=== PATIENT | female | born 1960 | race African-American/Black ===

== ENCOUNTER 2021-02-20 09:25 | Inpatient (IN) | payer MEDICARE, MEDICAID ==
[~2021-02-20] VITALS: Ht 165.1 cm; Wt 70.0 kg
[~2021-02-20 09:25] MED LIST: ETOMIDATE 2MG/ML 10ML VIAL IV ONE; SUCCINYLCHOLINE CHLORIDE 200MG/10ML IV ONE
[2021-02-20] MEDS ORDERED: ACETAMINOPHEN 650MG SUPP PR STA (10:16)
[2021-02-20 10:26] LABS: HEMATOCRIT. 34.3 % (36.0-48.0); HEMOGLOBIN. 10.2 g/dL (12.0-16.0); MEAN CORPUSCULAR HEMOGLOBIN 32.8 pg (28.0-32.0); RED BLOOD CELL COUNT 3.12 mill/uL (4.2-5.4); RED CELL DISTRIBUTION WIDTH 20.6 % (11.6-14.6)
[2021-02-20 10:29] LABS: CHLORIDE 97 mEq/L (98-107)
[2021-02-20] MEDS ORDERED: CEFEPIME 2,000 MG in DEXT 5% WATER 100 ML IV NR (10:30)
[2021-02-20] MEDS ORDERED: DEXTROSE 50% WATER 50ML SYRINGE IV ONE ×2 (10:30→14:45)
[2021-02-20] MEDS ORDERED: VANCOMYCIN 1 G PREMIX 200 ML IV ONE (10:30)
[2021-02-20 10:33] LABS: ETHANOL BLOOD < 10 mg/dL
[2021-02-20] MEDS ORDERED: BLOOD SUGAR DIAGNOSTIC STRIP TEST SCH (11:00)
[2021-02-20] MEDS ORDERED: DEXT 10% WATER 1,000 ML IV SCH (11:00)
[2021-02-20 11:05] LABS: NUCLEATED RED BLOOD CELLS 41 /100 WBC
[2021-02-20 11:07] LABS: PLATELET ESTIMATE MARKEDLY DECREASED
[2021-02-20 11:39] LABS: MEAN PLATELET VOLUME 8.9 fl (7.4-10.4); PLATELET 24 x1000/uL (130-400)
[2021-02-20] MEDS ORDERED: OCTREOTIDE ACETATE 50 MCG/ML 1ML SUBCUT ONE (12:30)
[2021-02-20] MEDS ORDERED: OCTREOTIDE ACETATE 50 MCG/ML 1ML SUBCUT SCH (12:45)
[2021-02-20 13:02] LABS: T4 FREE 1.11 ng/dL (0.76-1.46)
[2021-02-20 13:10] LABS: CLARITY URINE CLEAR (CLEAR); COLOR URINE YELLOW (YELLOW); KETONES URINE NEGATIVE (NEGATIVE); LEUKOCYTE ESTERASE URINE NEGATIVE (NEGATIVE); NITRITE URINE NEGATIVE (NEGATIVE); OCCULT BLOOD URINE 1+ (NEGATIVE); PROTEIN URINE 2+ (NEGATIVE); SPECIFIC GRAVITY URINE 1.016 (1.005-1.030); UROBILINOGEN URINE 0.2 E.U./dL (0.2-1.0)
[2021-02-20 13:19] LABS: *BARBITURATES SCREEN URINE NEGATIVE (NEGATIVE); *BENZODIAZEPINES SCREEN URINE NEGATIVE (NEGATIVE); *COCAINE SCREEN URINE NEGATIVE (NEGATIVE)
[2021-02-20 13:20] LABS: *AMPHETAMINES SCREEN URINE NEGATIVE (NEGATIVE); CANNABINOID URINE SCREEN NEGATIVE (NEGATIVE); METHADONE URINE SCREEN NEGATIVE (NEGATIVE); OPIATES URINE SCREEN NEGATIVE (NEGATIVE); PHENCYCLIDINE URINE SCREEN NEGATIVE (NEGATIVE)
[2021-02-20] MEDS ORDERED: DEXT 5% IV ONE ×2 (14:00→15:00)
[2021-02-20] MEDS ORDERED: ACETYLCYSTEINE IV ONE ×3 (14:00→19:00)
[2021-02-20] MEDS ORDERED: WATER IV ONE ×3 (14:00→19:00)
[2021-02-20] MEDS ORDERED: ONDANSETRON HCL 4MG/2ML INJ IV PRN (14:45)
[2021-02-20] MEDS ORDERED: DEXT 5%/0.9% NACL 1,000 ML IV SCH (14:45)
[2021-02-20] MEDS ORDERED: PANTOPRAZOLE SODIUM 40 MG/VIAL IV SCH (15:00)
[2021-02-20] MEDS ORDERED: DEXTROSE 50% WATER 50ML SYRINGE IV PRN (15:00)
[2021-02-20] MEDS ORDERED: IPRATROPIUM/ALBUTEROL 0.5-3(2.5)MG/3ML NEB HHN PRN (15:00)
[2021-02-20] MEDS ORDERED: SODIUM BICARBONATE 100 MEQ in DEXTROSE 5% WATER 1,000 ML IV SCH (15:30)
[2021-02-20] MEDS: LACTULOSE 20G/30ML UDC PO SCH ×2 (15:41→22:00)
[2021-02-20 15:44] LABS: BG BASE EXCESS -29.5 mmol/L (-2.0-2.0); BG CARBOXYHEMOGLOBIN 0.3 % (0.5-1.5); BG DEOXYHEMOGLOBIN 2.4 % (0.0-5.0); BG HCO3 ACT 4.5 mmol/L (22.0-26.0); BG METHEMOGLOBIN 0.7 % (0.0-1.5); BG OXYGEN SATURATION 97.6 % (92.0-98.5); BG OXYHEMOGLOBIN 96.6 % (94.0-97.0); BG PCO2 36.8 mmHg (35.0-45.0); BG PH 6.708 (7.350-7.450); BG PO2 171.5 mmHg (75.0-100.0); BG SAMPLE SITE UC; BG TOTAL HEMOGLOBIN 7.4 g/dL (12.0-18.0); BG VENT MODE MASK - BIPAP
[2021-02-20] MEDS ORDERED: SUCCINYLCHOLINE CHLORIDE 200MG/10ML IV ONE (16:15)
[2021-02-20] MEDS ORDERED: ETOMIDATE 2MG/ML 10ML VIAL IV ONE (16:15)
[2021-02-20] MEDS ORDERED: MIDAZOLAM HCL 100 MG in DEXT 5% WATER 80 ML IV ONE (16:15)
[2021-02-20] MEDS ORDERED: PHENYLEPHRINE 100 MG in DEXT 5% WATER 240 ML IV PRN (16:30)
[2021-02-20] MEDS ORDERED: MIDAZOLAM 100MG/100ML PMX 100 ML IV ONE (16:30)
[2021-02-20] MEDS ORDERED: PHENYLEPHRINE 50 MG in DEXT 5% WATER 245 ML IV PRN (16:30)
[2021-02-20] MEDS ORDERED: NOREPINEPHRINE 8 MG in DEXT 5% WATER 242 ML IV PRN ×2 (16:30→18:30)
[2021-02-20 16:43] LABS: BG DEOXYHEMOGLOBIN 0.2 % (0.0-5.0); BG METHEMOGLOBIN 0.9 % (0.0-1.5); BG OXYGEN SATURATION 99.8 % (92.0-98.5); BG OXYHEMOGLOBIN 98.9 % (94.0-97.0); BG PCO2 30.6 mmHg (35.0-45.0); BG PH < 6.686 (7.350-7.450); BG PO2 462.8 mmHg (75.0-100.0); BG SAMPLE SITE LEFT FEMORAL; BG TOTAL HEMOGLOBIN 6.9 g/dL (12.0-18.0); BG VENT MODE VENT - AC
[2021-02-20] MEDS ORDERED: FENTANYL CITRATE/PF 2,500 MCG in SODIUM CHLORIDE 0.9% 200 ML IV PRN (16:45)
[2021-02-20] MEDS ORDERED: SODIUM BICARBONATE 8.4% 1 MEQ/ML 50ML SYR IV NR ×2 (16:45→21:45)
[2021-02-20] MEDS ORDERED: NOREPINEPHRINE 8MG/250ML PMX 250 ML IV PRN (16:45)
[2021-02-20] MEDS ORDERED: IPRATROPIUM/ALBUTEROL 0.5-3(2.5)MG/3ML NEB HHN SCH (18:00)
[2021-02-20] MEDS ORDERED: MIDAZOLAM 100MG/100ML PMX 100 ML IV PRN (18:00)
[2021-02-20] MEDS ORDERED: AZITHROMYCIN 500 MG in DEXT 5% WATER 250 ML IV SCH (18:30)
[2021-02-20] MEDS ORDERED: DEXTROSE 5% IV ONE (19:00)
[2021-02-20 19:12] LABS: BG BASE EXCESS -29.1 mmol/L (-2.0-2.0); BG CARBOXYHEMOGLOBIN 0.3 % (0.5-1.5); BG DEOXYHEMOGLOBIN 1.7 % (0.0-5.0); BG FRACTION INSPIRED OXYGEN 40; BG HCO3 ACT 2.7 mmol/L (22.0-26.0); BG METHEMOGLOBIN 0.7 % (0.0-1.5); BG OXYGEN SATURATION 98.3 % (92.0-98.5); BG OXYHEMOGLOBIN 97.3 % (94.0-97.0); BG PCO2 17.1 mmHg (35.0-45.0); BG PH 6.818 (7.350-7.450); BG SAMPLE SITE RIGHT FEMORAL; BG TOTAL HEMOGLOBIN 6.7 g/dL (12.0-18.0); BG VENT MODE VENT - AC
[2021-02-20 19:57] LABS: HEPATITIS B SURFACE ANTIGEN NEGATIVE
[2021-02-20 20:55] LABS: HEMATOCRIT. 34.3 % (36.0-48.0); HEMOGLOBIN. 8.6 g/dL (12.0-16.0); MEAN CORPUSCULAR HEMOGLOBIN 33.1 pg (28.0-32.0); MEAN CORPUSCULAR VOLUME 132.1 fL (81.0-99.0); MEAN PLATELET VOLUME 8.1 fl (7.4-10.4); RED CELL DISTRIBUTION WIDTH 20.8 % (11.6-14.6)
[2021-02-20 21:00] LABS: CHLORIDE 87 mEq/L (98-107)
[2021-02-20] MEDS ORDERED: CEFEPIME 1,000 MG in DEXTROSE 5% WATER 50 ML IV SCH (21:00)
[2021-02-20 21:09] LABS: PLATELET 14 x1000/uL (130-400)
[2021-02-20 21:25] LABS: BG CARBOXYHEMOGLOBIN 0.3 % (0.5-1.5); BG DEOXYHEMOGLOBIN 5.8 % (0.0-5.0); BG FRACTION INSPIRED OXYGEN 40; BG METHEMOGLOBIN 0.7 % (0.0-1.5); BG OXYGEN SATURATION 94.1 % (92.0-98.5); BG OXYHEMOGLOBIN 93.2 % (94.0-97.0); BG PH < 6.686 (7.350-7.450); BG PO2 125.7 mmHg (75.0-100.0); BG SAMPLE SITE RIGHT FEMORAL; BG TOTAL HEMOGLOBIN 6.5 g/dL (12.0-18.0); BG TOTAL RESPIRATORY RATE 30 b/min; BG VENT MODE VENT - AC
[2021-02-20 21:43] LABS: NUCLEATED RED BLOOD CELLS 34 /100 WBC
[2021-02-20 21:44] LABS: PLATELET ESTIMATE MARKEDLY DECREASED
[2021-02-20] MEDS ORDERED: EPINEPHRINE 10 MG in SODIUM CHLORIDE 0.9% 240 ML IV PRN ×2 (22:00→22:30)
[2021-02-20] MEDS ORDERED: VASOPRESSIN 20 UNIT in SODIUM CHLORIDE 0.9% 99 ML IV PRN ×2 (22:00→22:30)
[2021-02-20 22:30] VITALS: BP 81/47
== END 2021-02-20 23:00 | DRG 871 ==
LOC: ER 09:33 → EDBEDREQTM 10:24 → EDBEDREQ 10:24 → EDBEDREQSVC 10:24 → MICUSO 12:29 → EDBEDREQ 12:43 → EDBEDREQTM 12:43 → UNDODISIN 02-21 01:53
PROVIDERS: ADMIT Internal Medicine; ATTEND Internal Medicine
PROC: 0BH17EZ Insertion of Endotracheal Airway into Trachea, Via Natural or Artificial Opening (ICD-10-PCS; principal; 2021-02-20)
PROC: 5A1935Z Respiratory Ventilation, Less than 24 Consecutive Hours (ICD-10-PCS; 2021-02-20)
PROC: 5A09357 Assistance with Respiratory Ventilation, Less than 24 Consecutive Hours, Continuous Positive Airway Pressure (ICD-10-PCS; 2021-02-20)
PROC: 06HY33Z Insertion of Infusion Device into Lower Vein, Percutaneous Approach (ICD-10-PCS; 2021-02-20)
DX: A41.50 Gram-negative sepsis, unspecified (principal); E43 Unspecified severe protein-calorie malnutrition; G93.41 Metabolic encephalopathy; R65.21 Severe sepsis with septic shock; K72.00 Acute and subacute hepatic failure without coma; N18.6 End stage renal disease; J96.01 Acute respiratory failure with hypoxia; J18.9 Pneumonia, unspecified organism; E72.20 Disorder of urea cycle metabolism, unspecified; D61.818 Other pancytopenia; E87.1 Hypo-osmolality and hyponatremia; K86.1 Other chronic pancreatitis; R18.8 Other ascites; I12.0 Hypertensive chronic kidney disease with stage 5 chronic kidney disease or end stage renal disease; E87.2 Acidosis; I67.82 Cerebral ischemia; Z66 Do not resuscitate; E16.2 Hypoglycemia, unspecified; Z20.822 Contact with and (suspected) exposure to COVID-19; E87.5 Hyperkalemia; K52.9 Noninfective gastroenteritis and colitis, unspecified; J43.9 Emphysema, unspecified; F17.200 Nicotine dependence, unspecified, uncomplicated; Z99.2 Dependence on renal dialysis; Z85.048 Personal history of other malignant neoplasm of rectum, rectosigmoid junction, and anus; Z86.19 Personal history of other infectious and parasitic diseases; Z92.21 Personal history of antineoplastic chemotherapy; Z68.25 Body mass index [BMI] 25.0-25.9, adult; Z98.891 History of uterine scar from previous surgery
CPT/HCPCS: 31500; 36415; 36600; 71045; 71250; 74176; 76700; 80053; 80305; 80307; 80320; 80329; 81003; 82140; 82375; 82805; 82962; 83605; 83880; 84145; 84439; 84443; 84484; 85025; 86703; 86705; 86709; 86803; 87077; 87186; 87340; 87426; 87804; 93005; 94002; 94660; 99291; C9113; J0132; J0330; J0456; J0692; J2250; J2354; J2370; J3370; J3490; J7050; J7060; J7070; U0003; U0005; G0480